=== PATIENT | male | born 1970 | race Caucasian/White ===

== ENCOUNTER → 2017-01-06 | Outpatient (CLI) | payer OTHER ==
--- NOTE | 2017-01-06 13:58 | XR ---
EXAMINATION TYPE: XR abdomen 1V , 2 VIEWS DATE OF EXAM ORDERED: 01/06/2017 HISTORY: R10.32 Left lower quadrant pain. COMPARISON: None. FINDINGS: The abdominal gas pattern is within normal limits. There is no evidence of obstruction or free air. There are phleboliths within the pelvis. Both femoral heads are nonspherical. There are small "bumps" on the femoral necks. IMPRESSION: 1. NO ACUTE INTRA-ABDOMINAL ABNORMALITY. 2. PLEASE CORRELATE CLINICALLY FOR FEMOROACETABULAR IMPINGEMENT SYNDROME.
[2017-01-06 14:22] LABS: Basophils % (A) 1 %; CH 29.8; CHCM 34.8; Eosinophils # (A) 0.4 k/uL (0-0.7); Eosinophils % (A) 6 %; HGB 14.9 gm/dL (13.0-17.5); Luc # (Auto) 0.11; Luc % (Auto) 2; Lymphocytes # (A) 1.4 k/uL (1.0-4.8); Lymphocytes % (A) 23 %; MCH 29.7 pg (25.0-35.0); MCHC 34.6 g/dL (31.0-37.0); MCV 85.8 fL (80.0-100.0); Mean Platelet Volume 7.7; Monocytes # (A) 0.3 k/uL (0-1.0); Monocytes % (A) 6 %; Neutrophils # (A) 3.9 k/uL (1.3-7.7); Neutrophils % (A) 63 %; RBC 5.01 m/uL (4.30-5.90); RDW 13.3 % (11.5-15.5); WBC 6.1 k/uL (3.8-10.6)
[2017-01-06 14:23] LABS: Appearance,Urine Clear (Clear); Bilirubin,Urine Negative (Negative); Glucose,Urine (UA) Negative (Negative); Ketones,Urine Negative (Negative); Leukocyte Esterase,Urine Negative (Negative); Nitrite,Urine Negative (Negative); Protein,Urine Negative (Negative); Specific Gravity,Urine 1.011 (1.001-1.035); UA Billing (MACRO vs. MICRO) CHEM
[2017-01-06 14:56] LABS: ALT 49 U/L (21-72); AST 23 U/L (17-59); Alkaline Phosphatase 77 U/L (38-126); Anion Gap 10 mmol/L; Blood Urea Nitrogen 15 mg/dL (9-20); C Reactive Protein 6.1 mg/L (<10.0); Calcium 9.3 mg/dL (8.4-10.2); Carbon Dioxide 24 mmol/L (22-30); Chloride 108 mmol/L (98-107); Glucose 82 mg/dL (74-99); Non-African American GFR(MDRD) >60 (>60 ml/min/1.73 sqM); Potassium 4.6 mmol/L (3.5-5.1); Sodium 142 mmol/L (137-145); Total Bilirubin 0.9 mg/dL (0.2-1.3)
== END | disposition home or self-care (01) ==
LOC: RADXRMAIN 13:11
PROVIDERS: ATTEND Family Medicine
DX: R10.32 Left lower quadrant pain (principal)
CPT/HCPCS: 36415; 74000; 80053; 81003; 84443; 85025; 86140

== ENCOUNTER → 2017-01-20 | Outpatient (CLI) | payer BC ==
--- NOTE | 2017-01-20 21:26 | CT ---
EXAMINATION TYPE: CT abdomen pelvis w con DATE OF EXAM: 01/20/2017 COMPARISON: 03/19/2014 HISTORY: 46-year-old male Blood in stool x1 year. TECHNIQUE: Contiguous axial scanning of the abdomen and pelvis following administration of 100 ml Omn ipaque 300 IV contrast. Delayed images through the kidneys and coronal/sagittal reconstructions perf ormed. CT DLP: 897.4 mGycm Automated exposure control for dose reduction was used. FINDINGS: The heart is normal size without pericardial effusion. Dependent atelectasis along the posterior lung s with some strandy areas of atelectasis. No pleural effusion. Liver is borderline to mildly enlarged at 18.2 cm craniocaudal. No focal liver lesion. No biliary jarrett agnieszka dilatation. Portal venous system is patent. Gallbladder, adrenal glands, kidneys, spleen with hilar splenule, and pancreas show no gross abnormal ity. No dilated small bowel, free fluid, or free air. Scattered nonenlarged mesenteric lymph nodes are dem onstrated. Borderline enlarged right lower quadrant mesenteric lymph nodes measure up to 8 mm, axial image 52, similar to prior. Normal appendix. Oral contrast has progressed to the cecum. There is moderate stool in the right rocael colon. No significant diverticular disease and no pericolonic inflammatory change. However, there matt ears to be mild fold thickening within the ascending colon, for example, coronal image 49 and sagitta l image 22. Bladder is nondistended. No abnormal fluid collection in the pelvis or pelvic lymphadenopathy seen. Bones: Stable sclerotic focus within the right sacral alar suggestive of a bone island. No osseous de structive process. IMPRESSION: MODERATE STOOL IN THE RIGHT HEMICOLON. NO SIGNIFICANT DIVERTICULAR DISEASE. THERE APPEARS TO BE MILD FOLD THICKENING WITHIN THE ASCENDING COLON. (CORONAL IMAGE 49 AND SAGITTAL IMAGE 22). CORRELATE FOR A MILD NONSPECIFIC COLITIS.
== END | disposition home or self-care (01) ==
LOC: RADCTMAIN 18:04
PROVIDERS: ATTEND Family Medicine
DX: R10.32 Left lower quadrant pain (principal)
CPT/HCPCS: 74177; Q9967

== ENCOUNTER 2017-01-25 14:09 | Emergency (ER) | payer BC ==
[2017-01-25] MEDS ORDERED: SODIUM CHLORIDE 0.9% 1,000 ML IV STA (14:38)
[2017-01-25 15:28] LABS: Basophils % (A) 1 %; CH 29.5; CHCM 34.9; Eosinophils # (A) 0.3 k/uL (0-0.7); Eosinophils % (A) 5 %; HCT 40.8 % (39.0-53.0); HDW 2.54; Luc # (Auto) 0.07; Luc % (Auto) 1; Lymphocytes # (A) 1.2 k/uL (1.0-4.8); Lymphocytes % (A) 21 %; MCHC 34.3 g/dL (31.0-37.0); MCV 84.8 fL (80.0-100.0); Mean Platelet Volume 7.9; Monocytes # (A) 0.3 k/uL (0-1.0); Monocytes % (A) 5 %; Neutrophils # (A) 3.8 k/uL (1.3-7.7); Neutrophils % (A) 68 %; RBC 4.82 m/uL (4.30-5.90); RDW 13.3 % (11.5-15.5); WBC 5.6 k/uL (3.8-10.6); WBC (Perox) 5.48
[2017-01-25 15:34] LABS: INR 1.1 (<1.2); Partial Thromboplastin Time 24.1 sec (22.0-30.0); Prothrombin Time 10.7 sec (9.0-12.0)
[2017-01-25 15:45] LABS: ALT 37 U/L (21-72); AST 19 U/L (17-59); Alkaline Phosphatase 69 U/L (38-126); Anion Gap 9 mmol/L; Blood Urea Nitrogen 10 mg/dL (9-20); Calcium 9.1 mg/dL (8.4-10.2); Carbon Dioxide 23 mmol/L (22-30); Chloride 110 mmol/L (98-107); Glucose 98 mg/dL (74-99); Magnesium 1.9 mg/dL (1.6-2.3); Non-African American GFR(MDRD) >60 (>60 ml/min/1.73 sqM); Sodium 142 mmol/L (137-145); Total Bilirubin 0.6 mg/dL (0.2-1.3); Total Protein 6.4 g/dL (6.3-8.2)
[2017-01-25 15:48] LABS: Creatine Kinase 104 U/L (55-170)
[2017-01-25 16:01] LABS: Creatine Kinase MB 1.4 ng/mL (0.0-2.4); Troponin I <0.012 ng/mL (0.000-0.034)
--- NOTE | 2017-01-25 16:01 | ED ---
General Adult HPI - General Chief complaint: GI Bleed Stated complaint: GI Bleed Time Seen by Provider: 01/25/17 14:37 Source: patient, RN notes reviewed, old records reviewed Mode of arrival: ambulatory Limitations: no limitations - History of Present Illness Initial comments: This is a 46-year-old male to the ER for evaluation. Patient didn't stay for evaluation of blood in his stool. Patient had 2 bloody bowel movements earlier today. No current active bleeding. No lightheadedness dizziness or weakness. Patient is nonpositive esophagus no prior colonoscopy. patient had similar episodes about 6 months ago, has been concerned about following up but has not made the correct appointments. patient had bowel movement - Related Data Home Medications Medication Instructions Recorded Confirmed Ibuprofen [Motrin] 600 - 800 mg PO DAILY PRN 01/25/17 01/25/17 Lisinopril [Zestril] 5 mg PO HS 01/25/17 01/25/17 Allergies Allergy/AdvReac Type Severity Reaction Status Date / Time No Known Allergies Allergy Verified 01/25/17 14:49 Review of Systems ROS Statement: Those systems with pertinent positive or pertinent negative responses have been documented in the HPI. ROS Other: All systems not noted in ROS Statement are negative. Past Medical History Past Medical History: No Reported History History of Any Multi-Drug Resistant Organisms: None Reported Past Surgical History: No Surgical Hx Reported Past Psychological History: No Psychological Hx Reported Smoking Status: Current every day smoker Past Alcohol Use History: None Reported Past Drug Use History: None Reported General Exam Limitations: no limitations General appearance: alert, in no apparent distress Head exam: Present: atraumatic, normocephalic, normal inspection Eye exam: Present: normal appearance, PERRL, EOMI. Absent: scleral icterus, conjunctival injection, periorbital swelling ENT exam: Present: normal exam, mucous membranes moist Neck exam: Present: normal inspection. Absent: tenderness, meningismus, lymphadenopathy Respiratory exam: Present: normal lung sounds bilaterally. Absent: respiratory distress, wheezes, rales, rhonchi, stridor Cardiovascular Exam: Present: regular rate, normal rhythm, normal heart sounds. Absent: systolic murmur, diastolic murmur, rubs, gallop, clicks GI/Abdominal exam: Present: soft, normal bowel sounds. Absent: distended, tenderness, guarding, rebound, rigid Extremities exam: Present: normal inspection, full ROM, normal capillary refill. Absent: tenderness, pedal edema, joint swelling, calf tenderness Back exam: Present: normal inspection Neurological exam: Present: alert, oriented X3, CN II-XII intact Psychiatric exam: Present: normal affect, normal mood Skin exam: Present: warm, dry, intact, normal color. Absent: rash Course Vital Signs 01/25/17 01/25/17 01/25/17 14:24 16:05 17:10 Temperature 98.2 F 97.6 F Pulse Rate 51 L 56 L 50 L Respiratory 17 16 16 Rate Blood Pressure 139/84 124/68 127/81 O2 Sat by Pulse 98 97 96 Oximetry - Reevaluation(s) Reevaluation #1: Spoke with attending physician regarding possible admission, Medical Decision Making - Medical Decision Making 46 male to the ER with perfuse bloody bowel movements. 0 bloody bowel movements here also in the emergency room, no prior colonoscopy, patient be discharged home to follow up with GI - Lab Data Result diagrams: 01/25/17 15:14 01/25/17 15:14 Lab Results 01/25/17 01/25/17 01/25/17 Range/Units 15:14 15:14 15:14 WBC 5.6 (3.8-10.6) k/uL RBC 4.82 (4.30-5.90) m/uL Hgb 14.0 (13.0-17.5) gm/dL Hct 40.8 (39.0-53.0) % MCV 84.8 (80.0-100.0) fL MCH 29.0 (25.0-35.0) pg MCHC 34.3 (31.0-37.0) g/dL RDW 13.3 (11.5-15.5) % Plt Count 184 (150-450) k/uL Neutrophils % 68 % Lymphocytes % 21 % Monocytes % 5 % Eosinophils % 5 % Basophils % 1 % Neutrophils # 3.8 (1.3-7.7) k/uL Lymphocytes # 1.2 (1.0-4.8) k/uL Monocytes # 0.3 (0-1.0) k/uL Eosinophils # 0.3 (0-0.7) k/uL Basophils # 0.0 (0-0.2) k/uL PT (9.0-12.0) sec INR (<1.2) APTT (22.0-30.0) sec Sodium 142 (137-145) mmol/L Potassium 4.0 (3.5-5.1) mmol/L Chloride 110 H (98-107) mmol/L Carbon Dioxide 23 (22-30) mmol/L Anion Gap 9 mmol/L BUN 10 (9-20) mg/dL Creatinine 1.00 (0.66-1.25) mg/dL Est GFR (MDRD) Af Amer >60 (>60 ml/min/1.73 sqM) Est GFR (MDRD) Non-Af >60 (>60 ml/min/1.73 sqM) Glucose 98 (74-99) mg/dL Calcium 9.1 (8.4-10.2) mg/dL Magnesium 1.9 (1.6-2.3) mg/dL Total Bilirubin 0.6 (0.2-1.3) mg/dL AST 19 (17-59) U/L ALT 37 (21-72) U/L Alkaline Phosphatase 69 (38-126) U/L Total Creatine Kinase 104 (55-170) U/L CK-MB (CK-2) 1.4 (0.0-2.4) ng/mL CK-MB (CK-2) Rel Index 1.3 Troponin I <0.012 (0.000-0.034) ng/mL Total Protein 6.4 (6.3-8.2) g/dL Albumin 4.0 (3.5-5.0) g/dL Lipase 125 (23-300) U/L Blood Type Blood Type Confirm Blood Type Recheck Antibody Screen Spec Expiration Date 01/25/17 01/25/17 01/25/17 Range/Units 15:14 15:14 16:45 WBC (3.8-10.6) k/uL RBC (4.30-5.90) m/uL Hgb (13.0-17.5) gm/dL Hct (39.0-53.0) % MCV (80.0-100.0) fL MCH (25.0-35.0) pg MCHC (31.0-37.0) g/dL RDW (11.5-15.5) % Plt Count (150-450) k/uL Neutrophils % % Lymphocytes % % Monocytes % % Eosinophils % % Basophils % % Neutrophils # (1.3-7.7) k/uL Lymphocytes # (1.0-4.8) k/uL Monocytes # (0-1.0) k/uL Eosinophils # (0-0.7) k/uL Basophils # (0-0.2) k/uL PT 10.7 (9.0-12.0) sec INR 1.1 (<1.2) APTT 24.1 (22.0-30.0) sec Sodium (137-145) mmol/L Potassium (3.5-5.1) mmol/L Chloride (98-107) mmol/L Carbon Dioxide (22-30) mmol/L Anion Gap mmol/L BUN (9-20) mg/dL Creatinine (0.66-1.25) mg/dL Est GFR (MDRD) Af Amer (>60 ml/min/1.73 sqM) Est GFR (MDRD) Non-Af (>60 ml/min/1.73 sqM) Glucose (74-99) mg/dL Calcium (8.4-10.2) mg/dL Magnesium (1.6-2.3) mg/dL Total Bilirubin (0.2-1.3) mg/dL AST (17-59) U/L ALT (21-72) U/L Alkaline Phosphatase (38-126) U/L Total Creatine Kinase (55-170) U/L CK-MB (CK-2) (0.0-2.4) ng/mL CK-MB (CK-2) Rel Index Troponin I (0.000-0.034) ng/mL Total Protein (6.3-8.2) g/dL Albumin (3.5-5.0) g/dL Lipase (23-300) U/L Blood Type B Positive Blood Type Confirm B Positive Blood Type Recheck CABO Indicated Antibody Screen NEGATIVE Spec Expiration Date 01/28/2017 - 7375 - Radiology Data Radiology results: report reviewed, image reviewed Disposition Clinical Impression: Gastrointestinal hemorrhage Disposition: HOME SELF-CARE Condition: Good Instructions: Gastrointestinal Bleeding (ED) Referrals: Antwan Lang MD [STAFF PHYSICIAN] - 1-2 days
[2017-01-25 16:06] VITALS: RESP 16
[2017-01-25 17:14] VITALS: BP 127/81; PULSE 50; TEMP 97.6
== END 2017-01-25 17:27 | disposition home or self-care (01) ==
LOC: EC 14:09
DX: K92.2 Gastrointestinal hemorrhage, unspecified (principal); F17.200 Nicotine dependence, unspecified, uncomplicated; Z79.899 Other long term (current) drug therapy
CPT/HCPCS: 36415; 80053; 82550; 82553; 83690; 83735; 84484; 85025; 85610; 85730; 86850; 86900; 86901; 96360; 99284

== ENCOUNTER → 2018-12-08 | Outpatient (CLI) | payer OTHER ==
[2018-12-08 10:25] LABS: HCT 43.5 % (39.0-53.0); HGB 14.3 gm/dL (13.0-17.5); MCH 27.7 pg (25.0-35.0); Mean Platelet Volume 7.7; Platelet Count 208 k/uL (150-450); RBC 5.18 m/uL (4.30-5.90); RDW 14.5 % (11.5-15.5)
[2018-12-08 10:44] LABS: Anion Gap 6 mmol/L; Blood Urea Nitrogen 13 mg/dL (9-20); Carbon Dioxide 25 mmol/L (22-30); Chloride 109 mmol/L (98-107); Potassium 4.5 mmol/L (3.5-5.1); Sodium 140 mmol/L (137-145)
== END | disposition home or self-care (01) ==
LOC: LABPAT 09:52
PROVIDERS: ATTEND Internal Medicine Interventional Cardiology
DX: Z01.812 Encounter for preprocedural laboratory examination (principal); I34.0 Nonrheumatic mitral (valve) insufficiency
CPT/HCPCS: 36415; 80051; 82565; 84520; 85027

== ENCOUNTER 2018-12-26 07:51 | Day surgery (SDC) | payer OTHER ==
[~2018-12-26 07:51] MED LIST: ALPRAZolam 0.25 MG TAB PO PRN; ALPRAZolam 0.5 MG TAB PO PRN; ASPIRIN 325 MG TAB PO STA; ATORVASTATIN 80 MG TAB PO STA; NITROGLYCERIN SL TABS 0.4 MG TAB SUBLINGUAL PRN; SODIUM CHLORIDE 0.9% 1,000 ML in EMPTY BAG 1 BAG IV ONE
[2018-12-26] MEDS ORDERED: VERAPAMIL 2.5 MG/ML 2 ML AMP ONE (08:57)
[2018-12-26] MEDS ORDERED: HEPARIN SODIUM 1,000 UN/ML (10ML VL) ONE (08:57)
[2018-12-26] MEDS ORDERED: LIDOCAINE 1% INJ 10MG/ML (20 ML MDV) ONE (08:57)
[2018-12-26] MEDS ORDERED: fentaNYL (PF) 50 MCG/ML 2 ML AMP ONE (09:13)
[2018-12-26] MEDS ORDERED: MIDAZOLAM (PF) 2 MG/2 ML VIAL IVP ONE (09:15)
[2018-12-26] MEDS ORDERED: fentaNYL (PF) 50 MCG/ML 2 ML AMP IVP ONE (09:15)
[2018-12-26] MEDS ORDERED: LIDOCAINE 1% INJ 10MG/ML (20 ML MDV) SQ ONE (09:18)
[2018-12-26] MEDS ORDERED: VERAPAMIL SYRINGE (5 MG/10 ML) INTRAARTER ONE ×2 (09:20→09:21)
[2018-12-26] MEDS ORDERED: CLOPIDOGREL 75 MG TAB ONE (09:28)
[2018-12-26] MEDS ORDERED: CLOPIDOGREL 75 MG TAB PO ONE (09:30)
[2018-12-26] MEDS ORDERED: BIVALIRUDIN BOLUS 250 MG/50 ML IV ONE (09:30)
[2018-12-26] MEDS ORDERED: BIVALIRUDIN 250 MG in SODIUM CHLORIDE 0.9% 50 ML IV ONE ×2 (09:32→09:57)
[2018-12-26] MEDS ORDERED: IOPAMIDOL-370 125ML BTL INJ ONE (09:40)
[2018-12-26] MEDS ORDERED: NITROGLYCERIN 1000MCG/10ML SYRINGE INTRACORON ONE (10:18)
[2018-12-26] MEDS ORDERED: IOPAMIDOL-370 100ML BTL INJ ONE (10:23)
[2018-12-26] MEDS ORDERED: MAG HYDROX/AL HYDROX/SIMETH 30 ML CUP PO PRN (10:44)
[2018-12-26] MEDS ORDERED: NITROGLYCERIN SL TABS 0.4 MG TAB SUBLINGUAL PRN (10:44)
[2018-12-26] MEDS ORDERED: ZOLPIDEM 5 MG TAB PO PRN (10:44)
[2018-12-26] MEDS ORDERED: ATROPINE SULFATE 0.1 MG/ML 10ML SYRINGE IV PRN (10:44)
[2018-12-26] MEDS ORDERED: RX INFO: IV CONTRAST WAS GIVEN 1 EACH MISC MISCELLANE PRN (10:44)
--- NOTE | 2018-12-26 11:04 | CC ---
CARDIAC CATHETERIZATION REPORT Mr. Willson is a 48-year-old male with a known history of hypertension, remote history of smoking and a family history of coronary artery disease who presented with symptoms of chest discomfort, exertion in pattern with progressive dyspnea on exertion. In view of that, recommendation was made regarding cardiac catheterization. The procedure as well as the risks and complications were discussed with the patient who is in full understanding and agreement. PROCEDURE: Patient was brought to the laborer laboratory in a fasting semi-sedated state after receiving fentanyl and Benadryl and achieving moderate conscious sedated state. Using Xylocaine anesthesia in the Seldinger technique a 6-Italian sheath was introduced in the right radial artery. Selective right and left coronary angiography was performed using 5- Italian 3.5 bend right and left Edgar catheter. Multiple views of the coronary artery including hemiaxial views were obtained. Following that, angioplasty and stenting was performed. Of note, the patient received intra-arterial verapamil. FINDING: LEFT MAIN: This is a large-sized vessel bifurcating in the left circumflex, left anterior descending artery. Left main coronary artery has no evidence of high-grade stenosis. LEFT ANTERIOR DESCENDING ARTERY: This is a large-sized vessel reaching toward the apex, tapers down distal third, giving rise to a large diagonal branch. The left anterior descending artery and its branches have no evidence of obstructive coronary artery disease. LEFT CIRCUMFLEX: This is a nondominant vessel, large in caliber giving rise to 2 obtuse marginal branches. The second obtuse marginal branch is subtotally occluded with minimal antegrade flow with a long segment of subtotal occlusion. RIGHT CORONARY ARTERY: This vessel is large, dominant bifurcating distally PDA and posterolateral segment and branches. The right coronary artery in mid segment is subtotally occluded with 99% stenosis and slow antegrade flow. COLLATERALS: There are collaterals from the left coronary system toward the right PDA as well as from the right coronary system to the second obtuse marginal branch. LEFT VENTRICULOGRAM: Left ventriculogram is not performed. CONCLUSION: 1. Subtotally occluded mid right coronary artery. 2. Subtotally occluded second obtuse marginal branch. RECOMMENDATION: In view of finding anatomy, I recommend proceeding with angioplasty and stenting of the right coronary artery and the obtuse marginal branch. The procedure as well as the risks and the complications were discussed with the patient who is in full understanding and agreement. MMODL / IJN: [id number] /
--- NOTE | 2018-12-26 11:13 | PTCA ---
PERCUTANEOUSTRANS CORORONARY ANGIOGRAPHY Mr. Willson is a 48-year-old male with a known history of hypertension, remote history of smoking, who presented with progressive angina pectoris and dyspnea on exertion. Underwent cardiac catheterization, was found to have subtotally occluded mid right coronary artery and the second obtuse marginal branch. Recommendation was made regarding angioplasty and stenting. The procedure as well as the risks and complication were discussed with the patient who is in full understanding and agreement. PROCEDURE: A 6-Marshallese FR4 guiding catheter was introduced in the system. After cannulating the right coronary ostium, attempt to advance a 0.014 balanced medium weight J-wire across the subtotal occlusion were unsuccessful. That wire was removed and attempt to advance a Whisper J-wire were unsuccessful as well. At that point, a Corsair catheter was advanced and attempt to advance initially the Whisper J-wire and the a 0.014 run through wire were unsuccessful. Subsequently with multiple attempts and with difficulty, there was ability to advance the whisper J-wire that was positioned distally. Subsequently, the Corsair microcatheter was removed and a 1.5 x 8 mm Trek balloon was advanced and multiple inflations at 10 atmospheres were done. Following that, the balloon was removed and a 2.5 x 12 mm Trek balloon was advanced and multiple inflation at 8 atmospheres were done. Following that, the balloon was removed and a 2.75 x 23 mm Xience Marce stent was deployed postdilated at 14 atmospheres. After the last inflation, after appropriate wait, the balloon and the guidewire were withdrawn back in the guiding catheter. Images were obtained and repeated. Those images reveal stable successful stenting. At that point, the guiding catheter, the balloon and the guidewire were removed. The sheath was removed. Hemostasis was obtained with deployment of a TR band. There was no immediate complication. Patient was returned to his room in stable condition. Of note, the patient had chest discomfort with the inflation that resolved at the end of the procedure. He received Angiomax per protocol as well as oral loading dose of clopidogrel. RESULTS: Successful recanalization of the subtotally occluded mid right coronary artery with reduction of stenosis from 99% to 0%. RECOMMENDATION: Patient will be continued on aspirin, Plavix and statin. The importance of dual antiplatelet treatment were discussed with the patient and his family who are in full understanding and agreement. The patient will be readmitted at a later time to undergo stenting of his second obtuse marginal branch. Duration of procedure is 70 minutes. MMODL / IJN: [id number] /
[2018-12-26] MEDS: SODIUM CHLORIDE 0.9% 1,000 ML IV SCH ×2 (11:42→20:02)
[2018-12-26] MEDS: LISINOPRIL 5 MG TAB PO SCH (11:42)
[2018-12-26 13:27] VITALS: BMI 30.8
[2018-12-26] MEDS: METOPROLOL SUCCINATE (ER) 25 MG TAB.ER.24H PO SCH (20:05)
[2018-12-26] MEDS ORDERED: ATORVASTATIN 80 MG TAB PO SCH (21:00)
[2018-12-26] MEDS ORDERED: LISINOPRIL 5 MG TAB PO SCH (21:00)
[2018-12-27 03:57] VITALS: PULSE 60; RESP 16; TEMP 98
[2018-12-27] MEDS: SODIUM CHLORIDE 0.9% 1,000 ML IV SCH (04:27)
[2018-12-27 07:22] LABS: African American GFR (CKD) >90 (>60 ml/min/1.73 sqM); Anion Gap 5 mmol/L; Blood Urea Nitrogen 13 mg/dL (9-20); Calcium 8.7 mg/dL (8.4-10.2); Carbon Dioxide 24 mmol/L (22-30); Chloride 112 mmol/L (98-107); Glucose 106 mg/dL (74-99); Potassium 4.4 mmol/L (3.5-5.1); Sodium 141 mmol/L (137-145)
[2018-12-27] MEDS: LISINOPRIL 5 MG TAB PO SCH (08:54)
[2018-12-27] MEDS: METOPROLOL SUCCINATE (ER) 25 MG TAB.ER.24H PO SCH (08:54)
[2018-12-27 08:55] VITALS: BP 138/86
[2018-12-27] MEDS ORDERED: ASPIRIN 81 MG PO SCH (09:00)
[2018-12-27] MEDS ORDERED: CLOPIDOGREL 75 MG TAB PO SCH (09:00)
--- NOTE | 2018-12-27 10:07 | PN ---
PROGRESS NOTE Mr. Willson is a 48-year-old male who presented with symptoms of unstable angina, underwent cardiac catheterization, was found to have subtotally occluded right coronary artery and second obtuse marginal branch, underwent stenting of the right coronary artery. He is doing well this morning, ambulating without difficulty. Denying any chest pain. No dizziness. No palpitation. He continues to be on aspirin once a day, Lipitor 80 mg daily, Plavix 75 mg daily, lisinopril 5 mg daily, and metoprolol succinate 12.5 mg twice a day. PHYSICAL EXAMINATION: Blood pressure 112/70 with the heart rate in the 60s. LUNGS: Clear. HEART: Regular rate and rhythm. S1, S2. No S3. No rub. ABDOMEN: Soft, nontender. EXTREMITIES: No edema. Right radial pulse is intact. EKG revealed no acute changes. Lab data revealed BUN creatinine 13 and 0.87 and potassium 4.4. IMPRESSION: 1. Status post stenting of the right coronary artery. 2. Subtotally occluded second obtuse marginal branch. 3. Hypertension. 4. Prior history of smoking. RECOMMENDATION: Patient will be discharged home today to be re-admitted electively to undergo stenting of the obtuse marginal branch. Those findings and recommendation were discussed with the patient who is in full understanding and agreement. MMODL / IJN: [id number] /
== END 2018-12-27 09:17 | disposition home or self-care (01) ==
LOC: CATHCVL 07:51 → 3SCARD 10:28 → CATHCVL 12-27 09:17
PROVIDERS: ATTEND Internal Medicine Interventional Cardiology
DX: I25.110 Atherosclerotic heart disease of native coronary artery with unstable angina pectoris (principal); I25.82 Chronic total occlusion of coronary artery; I10 Essential (primary) hypertension; I34.0 Nonrheumatic mitral (valve) insufficiency; Z82.49 Family history of ischemic heart disease and other diseases of the circulatory system; Z87.891 Personal history of nicotine dependence; Z79.899 Other long term (current) drug therapy; Z79.82 Long term (current) use of aspirin
CPT/HCPCS: 93454; 85347; 80048; C9600; C1769 ×4; C1887 ×2; C1894; C1725 ×2; C1874; J2001; J3010; J0583; Q9967 ×2; J2250

== ENCOUNTER 2019-01-03 06:27 | Day surgery (SDC) | payer OTHER ==
[2018-12-30 11:12] VITALS: BMI 30.9
[~2019-01-03 06:27] MED LIST changes: -ASPIRIN 325 MG TAB PO STA; -ATORVASTATIN 80 MG TAB PO STA
[2019-01-03] MEDS ORDERED: ATORVASTATIN 80 MG TAB PO ONE (07:00)
[2019-01-03] MEDS ORDERED: ASPIRIN 325 MG TAB PO ONE (07:00)
[2019-01-03 07:02] LABS: Basophils % (A) 0 %; Eosinophils # (A) 0.4 k/uL (0-0.7); Eosinophils % (A) 5 %; HCT 41.2 % (39.0-53.0); HGB 13.8 gm/dL (13.0-17.5); Lymphocytes # (A) 1.4 k/uL (1.0-4.8); Lymphocytes % (A) 19 %; MCH 28.4 pg (25.0-35.0); MCHC 33.4 g/dL (31.0-37.0); MCV 85.1 fL (80.0-100.0); Mean Platelet Volume 7.7; Monocytes # (A) 0.4 k/uL (0-1.0); Monocytes % (A) 5 %; Neutrophils # (A) 5.3 k/uL (1.3-7.7); Neutrophils % (A) 70 %; Platelet Count 193 k/uL (150-450); RBC 4.84 m/uL (4.30-5.90); RDW 13.9 % (11.5-15.5); WBC 7.6 k/uL (3.8-10.6)
[2019-01-03] MEDS ORDERED: fentaNYL (PF) 50 MCG/ML 2 ML AMP ONE (07:10)
[2019-01-03] MEDS ORDERED: LIDOCAINE 1% INJ 10MG/ML (20 ML MDV) ONE (07:10)
[2019-01-03 07:26] LABS: African American GFR (CKD) >90 (>60 ml/min/1.73 sqM); Anion Gap 10 mmol/L; Blood Urea Nitrogen 16 mg/dL (9-20); Calcium 8.9 mg/dL (8.4-10.2); Carbon Dioxide 23 mmol/L (22-30); Chloride 108 mmol/L (98-107); Glucose 104 mg/dL (74-99); Potassium 4.1 mmol/L (3.5-5.1); Sodium 141 mmol/L (137-145)
[2019-01-03] MEDS ORDERED: VERAPAMIL 2.5 MG/ML 2 ML AMP ONE (07:50)
[2019-01-03] MEDS ORDERED: LIDOCAINE 1% INJ 10MG/ML (20 ML MDV) SQ ONE (07:54)
[2019-01-03] MEDS ORDERED: fentaNYL (PF) 50 MCG/ML 2 ML AMP IV ONE (07:54)
[2019-01-03] MEDS ORDERED: MIDAZOLAM (PF) 2 MG/2 ML VIAL IV ONE (07:56)
[2019-01-03] MEDS ORDERED: VERAPAMIL SYRINGE (5 MG/10 ML) INTRAARTER ONE (07:57)
[2019-01-03] MEDS ORDERED: BIVALIRUDIN BOLUS 250 MG/50 ML IV ONE (08:04)
[2019-01-03] MEDS ORDERED: BIVALIRUDIN 250 MG in SODIUM CHLORIDE 0.9% 36 ML IV ONE (08:05)
[2019-01-03] MEDS ORDERED: IOPAMIDOL-370 125ML BTL INJ ONE ×2 (08:28→08:57)
[2019-01-03] MEDS ORDERED: BIVALIRUDIN 250 MG in SODIUM CHLORIDE 0.9% 50 ML IV ONE (08:48)
[2019-01-03] MEDS ORDERED: MAG HYDROX/AL HYDROX/SIMETH 30 ML CUP PO PRN (09:09)
[2019-01-03] MEDS ORDERED: ATROPINE SULFATE 0.1 MG/ML 10ML SYRINGE IV PRN (09:09)
[2019-01-03] MEDS ORDERED: RX INFO: IV CONTRAST WAS GIVEN 1 EACH MISC MISCELLANE PRN (09:09)
[2019-01-03] MEDS ORDERED: ZOLPIDEM 5 MG TAB PO PRN (09:09)
[2019-01-03] MEDS ORDERED: NITROGLYCERIN SL TABS 0.4 MG TAB SUBLINGUAL PRN (09:09)
[2019-01-03] MEDS ORDERED: SODIUM CHLORIDE 0.9% 1,000 ML IV SCH (09:15)
--- NOTE | 2019-01-03 09:42 | PTCA ---
PERCUTANEOUSTRANS CORORONARY ANGIOGRAPHY Mr. Willson is a 48-year-old male with recent onset angina pectoris, underwent cardiac catheterization last week and was found to have subtotally occluded right coronary artery and second obtuse marginal branch. He underwent stenting of the right coronary artery, was brought in electively to undergo attempt to do angioplasty on the second obtuse marginal branch. The procedures, risks and complication were discussed with the patient who is in full understanding and agreement. PROCEDURE: Patient was brought to the labor relations analyst in a fasting semi-sedated state after receiving fentanyl and Benadryl and achieving moderate conscious sedated state. Using Xylocaine anesthesia and Seldinger technique, a 6-Paraguayan sheath was introduced in the right radial artery. Selective left coronary angiography performed using 6-Paraguayan, 3.5 bend FL guiding catheter after cannulating the left main, a 0.014 balanced medium weight J- wire was advanced in the proximal 2nd obtuse marginal branch with the help of Supercross, that wire would not cross the distal total occlusion. The wire was removed and a Whisper J-wire was advanced and that was unsuccessful in crossing. At that point, the wire was removed and a Fielder XT wire was advanced and with difficulty there was ability to cross the distal total occlusion positioned in the distal vessel. Subsequently, attempt to advance a 1.2 x 8 mm Trek balloon were unsuccessful in crossing the total occlusion. The inflation of proximal total occlusion was performed, was at a maximum of 10 atmospheres, but that did not improve the distal flow at that point, the guidewire and the balloon were withdrawn back in the guiding catheter. Images were obtained and repeated. Subsequently, guiding catheter, wire and the balloon was removed. The sheath was removed. Hemostasis was obtained with deployment of a TR band. There was no immediate complication. Patient is returned to his room in stable condition. Of note, the patient received Angiomax per protocol. He had no chest discomfort or EKG changes with the inflations. RESULTS: Unsuccessful recanalization of a subtotal chronic occlusion of the second obtuse marginal branch. RECOMMENDATION: Patient will be continued on aspirin, Plavix, statin, beta lawson and HOLLIE inhibitor. The importance of dual antiplatelet treatment were discussed with the patient and his family who are in full understanding and agreement. Duration of procedure is 62 minutes. MMODL / IJN: [id number] / MTDClinton
[2019-01-03 20:52] VITALS: RESP 20
[2019-01-03] MEDS: METOPROLOL SUCCINATE (ER) 25 MG TAB.ER.24H PO SCH (20:54)
[2019-01-03] MEDS ORDERED: LISINOPRIL 5 MG TAB PO SCH (21:00)
[2019-01-03] MEDS ORDERED: ATORVASTATIN 80 MG TAB PO SCH (21:00)
[2019-01-04 06:07] VITALS: BP 106/67; PULSE 58; TEMP 98
--- NOTE | 2019-01-04 07:41 | PN ---
PROGRESS NOTE Mr. Willson is a 48-year-old male who underwent stenting of subtotally occluded right coronary artery last week and was found to have a subtotally occluded second obtuse marginal branch was admitted yesterday and attempted recannulization of that vessel were unsuccessful with inability to advance the balloon. He is doing well this morning. His breathing is stable. He is denying any chest pain. No dizziness. No palpitation. No nausea. He continued be on aspirin once a day, Lipitor 80 mg daily, Plavix 75 mg daily, lisinopril 5 mg daily, metoprolol succinate 25 mg daily. PHYSICAL EXAMINATION: Blood pressure 106/60 with the heart rate in the 60s. LUNGS: Clear. HEART: Regular rate and rhythm. S1, S2. No S3. No rub. ABDOMEN: Soft, nontender. EXTREMITIES: No edema. Right radial pulse intact. LAB DATA: Lab data revealed BUN and creatinine 16 and 0.9. Potassium 4.1. Hemoglobin of 13.8. IMPRESSION: 1. Unsuccessful recanalization of the second obtuse marginal branch. 2. Status post stenting of the right coronary artery. 3. Hypertension. 4. Hyperlipidemia. RECOMMENDATION: Patient will be discharged home today and followed as an outpatient. MMODL / IJN: [id number] /
[2019-01-04] MEDS: METOPROLOL SUCCINATE (ER) 25 MG TAB.ER.24H PO SCH (08:01)
[2019-01-04 08:03] LABS: African American GFR (CKD) >90 (>60 ml/min/1.73 sqM); Anion Gap 10 mmol/L; Blood Urea Nitrogen 17 mg/dL (9-20); Carbon Dioxide 22 mmol/L (22-30); Chloride 108 mmol/L (98-107); Glucose 99 mg/dL (74-99); Potassium 4.6 mmol/L (3.5-5.1); Sodium 140 mmol/L (137-145)
[2019-01-04] MEDS ORDERED: CLOPIDOGREL 75 MG TAB PO SCH (09:00)
[2019-01-04] MEDS ORDERED: ASPIRIN 81 MG PO SCH (09:00)
== END 2019-01-04 08:12 | disposition home or self-care (01) ==
LOC: CATHCVL 06:27 → 3SCARD 13:43 → CATHCVL 01-04 08:12
PROVIDERS: ATTEND Internal Medicine Interventional Cardiology
DX: I25.119 Atherosclerotic heart disease of native coronary artery with unspecified angina pectoris (principal); Z53.8 Procedure and treatment not carried out for other reasons; I25.82 Chronic total occlusion of coronary artery; I10 Essential (primary) hypertension; I34.0 Nonrheumatic mitral (valve) insufficiency; E78.5 Hyperlipidemia, unspecified; Z95.5 Presence of coronary angioplasty implant and graft; Z87.891 Personal history of nicotine dependence; Z82.49 Family history of ischemic heart disease and other diseases of the circulatory system; Z79.82 Long term (current) use of aspirin; Z79.899 Other long term (current) drug therapy
CPT/HCPCS: 92920; 85347; 80048 ×2; 85025; C1769 ×5; C1887 ×2; C1894 ×2; C1725; J2001; J3010; J0583; Q9967; J2250

== ENCOUNTER → 2019-01-10 | Outpatient (CLI) | payer OTHER ==
[2019-01-10 19:16] LABS: LDL Cholesterol,Calculated 70.6 mg/dL (0.0-131.0); VLDL Calculation 16.4 mg/dL (5.00-40.00)
== END | disposition home or self-care (01) ==
LOC: LABWHC1 11:21
PROVIDERS: ATTEND Nurse Practitioner Adult Health
DX: E78.2 Mixed hyperlipidemia (principal)
CPT/HCPCS: 36415; 80061; 84450; 84460

== ENCOUNTER → 2019-03-17 | Outpatient (CLI) | payer OTHER ==
[2019-03-17 19:01] LABS: Chol/HDL Ratio 3.72
== END | disposition home or self-care (01) ==
LOC: LABWHC1 13:59
PROVIDERS: ATTEND Nurse Practitioner Adult Health
DX: E78.2 Mixed hyperlipidemia (principal)
CPT/HCPCS: 36415; 80061; 84450; 84460

== ENCOUNTER → 2020-12-03 | Outpatient (CLI) | payer BC ==
[2020-12-03 19:46] LABS: African American GFR (CKD) 115.8 (60.0-200.0); Albumin 4.4 g/dL (3.80-4.90); Anion Gap 7.9 mmol/L (4.00-12.00); BUN/Creat Ratio 15.56 Ratio (12.00-20.00); Calcium 8.8 mg/dL (8.7-10.3); Carbon Dioxide 22.1 mmol/L (21.6-31.8); Chol/HDL Ratio 4.43; Globulin 2.2 g/dL (1.6-3.3); Non-African American GFR(CKD) 99.9 (60.0-200.0); Potassium 4.3 mmol/L (3.5-5.5); Total Protein 6.6 g/dL (6.2-8.2)
== END | disposition home or self-care (01) ==
LOC: LABWHC1 10:15
PROVIDERS: ATTEND Internal Medicine Interventional Cardiology
DX: E78.2 Mixed hyperlipidemia (principal)
CPT/HCPCS: 36415; 80053; 80061

== ENCOUNTER → 2023-02-24 | Outpatient (CLI) | payer BC ==
[2023-02-24 14:48] LABS: HCT 42.3 % (39.6-50.0); HGB 14.3 d/dL (13.0-17.0); MCHC 33.8 d/dL (32.0-37.0); MCV 85.8 FL (80.0-97.0); Mean Platelet Volume 10.6 FL (9.5-12.2); NRBC Per 100 WBC 0 X 10*3/uL (0.00-0.01); Platelet Count 220 X 10*3/uL (140-440); RBC 4.93 X 10*6/uL (4.40-5.60); RDW 12.8 % (11.5-14.5)
[2023-02-25 02:50] LABS: ALT 40 U/L (10-49); AST 22 U/L (14-35); Albumin 4.4 d/dL (3.8-4.9); Alkaline Phosphatase 90 U/L (41-126); BUN/Creat Ratio 10.33 Ratio (12.00-20.00); Blood Urea Nitrogen 9.3 mg/dL (9.0-27.0); Calcium 9.1 mg/dL (8.7-10.3); Carbon Dioxide 24.1 mmol/L (21.6-31.8); Chloride 108 mmol/L (96-109); Chol/HDL Ratio 4.97 Ratio; Globulin 2.1 d/dL (1.6-3.3); Glucose 101 mg/dL (70-110); LDL Cholesterol,Calculated 100.4 mg/dL (0.0-131.0); Potassium 4.2 mmol/L (3.5-5.5); Sodium 143 mmol/L (135-145); Total Bilirubin 0.8 mg/dL (0.3-1.2); Total Protein 6.5 d/dL (6.2-8.2)
== END | disposition home or self-care (01) ==
LOC: LABWHC1 10:34
PROVIDERS: ATTEND Internal Medicine Interventional Cardiology
DX: I25.10 Atherosclerotic heart disease of native coronary artery without angina pectoris (principal); E78.2 Mixed hyperlipidemia
CPT/HCPCS: 36415; 80053; 80061; 85027